=== PATIENT | female | born 1965 | race African-American/Black ===

== ENCOUNTER → 2023-09-15 | Outpatient (CLI) | payer BC, OTHER ==
[2023-09-15 11:39] LABS: BASOPHILS % 1.4 % (0.0-2.0); EOSINOPHILS % 1.5 % (0.0-5.0); HEMATOCRIT. 38.1 % (36.0-48.0); HEMOGLOBIN. 13.2 g/dL (12.0-16.0); LYMPHOCYTES % 34.2 % (20.0-50.0); MEAN CORPUSCULAR HEMOGLOBIN 32.5 pg (28.0-32.0); MEAN CORPUSCULAR HGB CONC 34.5 g/dL (31.0-37.0); MEAN CORPUSCULAR VOLUME 94.1 fL (81.0-99.0); MEAN PLATELET VOLUME 8.1 fl (7.4-10.4); MONOCYTES % 7.9 % (2.0-8.0); PLATELET 295 x1000/uL (130-400); RED BLOOD CELL COUNT 4.05 mill/uL (4.2-5.4); RED CELL DISTRIBUTION WIDTH 14.9 % (11.6-14.6); WHITE BLOOD COUNT 8.6 x1000/uL (4.5-11.0)
[2023-09-15 12:33] LABS: CHLORIDE 103 mEq/L (98-107); INDEX HEMOLYSI 1 (1-3); INDEX ICTERIC 1 (1-4); INDEX LIPEMIC 1 (1-3); POTASSIUM 4.2 mEq/L (3.5-5.1); SODIUM 137 mEq/L (136-145)
[2023-09-15 12:51] LABS: ALANINE AMINOTRANSFERASE 57 IU/L (13-61); ALBUMIN 4.6 g/dL (3.4-5.0); ASPARTATE AMINOTRANSFERASE 46 IU/L (15-37); BILIRUBIN DIRECT 0.3 mg/dL (0.0-0.2); BILIRUBIN TOTAL 1.2 mg/dL (0.1-1.0); CALCIUM 10.3 mg/dL (8.5-10.1); CARBON DIOXIDE 30 mEq/L (21-32); CHOLESTEROL 214 mg/dL (<200); CREATININE 0.9 mg/dL (0.6-1.3); GLUCOSE 102 mg/dL (70-105); LDL CHOLESTEROL 35 mg/dL (5-100); PROTEIN TOTAL 8.6 g/dL (6.0-8.3); T4 FREE 0.86 ng/dL (0.76-1.46); TRIGLYCERIDE 58 mg/dL (0-150); UREA NITROGEN BLOOD 21 mg/dL (7-21)
[2023-09-15 18:12] LABS: HDL CHOLESTEROL 181 mg/dL (40-59)
== END | disposition home or self-care (01) ==
LOC: LAB 08:27
PROVIDERS: ATTEND Internal Medicine
DX: Z00.01 Encounter for general adult medical examination with abnormal findings (principal); I10 Essential (primary) hypertension; E78.5 Hyperlipidemia, unspecified; E06.3 Autoimmune thyroiditis
CPT/HCPCS: 36415; 80053; 80061; 80076; 84439; 84443; 85025; 86376

== ENCOUNTER → 2023-09-20 | Outpatient (CLI) | payer BC | END | disposition home or self-care (01) | LOC: US 08:20 | PROVIDERS: ATTEND Internal Medicine | DX: E04.2 Nontoxic multinodular goiter (principal) | CPT/HCPCS: 76536 ==

== ENCOUNTER → 2023-09-29 | Day surgery (SDC) | payer BC ==
[~2023-09-29] MED LIST: LIDOCAINE HCL 1% 10 MG/ML 10ML VIAL ONE; SODIUM BICARBONATE 4% (2.4MEQ) 5ML VIAL IV ONE
== END | disposition home or self-care (01) ==
LOC: RAD 09:27
PROVIDERS: ATTEND Internal Medicine
DX: E04.1 Nontoxic single thyroid nodule (principal)
CPT/HCPCS: 10005; J3490 ×2

== ENCOUNTER 2024-02-27 08:40 | Emergency (ER) | payer BC ==
[~2024-02-27] VITALS: Ht 170.2 cm; Wt 62.0 kg
[2024-02-27 08:45] VITALS: O2SAT 99
[2024-02-27] MEDS: PREDNISONE 5MG TABLET PO ONE (10:20)
[2024-02-27] MEDS ORDERED: PRED5TAB MT ×2 (10:39→20:37)
[2024-02-27 11:00] VITALS: BP 114/69; PULSE 87; RESP 17; TEMP 98.2
[2024-02-27] MEDS ORDERED: ACETAMINOPHEN 325MG TABLET PO NR (11:15)
[2024-02-27] MEDS ORDERED: HYDR-4001 MT ×2 (20:39→21:42)
[2024-02-27] MEDS ORDERED: P20 MT (21:40)
== END 2024-02-27 11:01 | disposition home or self-care (01) ==
LOC: ER 08:40
DX: K50.90 Crohn's disease, unspecified, without complications (principal); Z76.0 Encounter for issue of repeat prescription; Z90.710 Acquired absence of both cervix and uterus
CPT/HCPCS: 99283; J7512

== ENCOUNTER 2024-02-27 19:41 | Emergency (ER) | payer BC ==
[~2024-02-27] VITALS: Ht 170.2 cm; Wt 63.0 kg
[~2024-02-27 19:41] MED LIST changes: -LIDOCAINE HCL 1% 10 MG/ML 10ML VIAL ONE; +PRED5TAB MT; -SODIUM BICARBONATE 4% (2.4MEQ) 5ML VIAL IV ONE
[2024-02-27 19:53] VITALS: O2SAT 99
[2024-02-27] MEDS ORDERED: PRED5TAB MT (20:37)
[2024-02-27] MEDS ORDERED: HYDR-4001 MT ×2 (20:39→21:42)
[2024-02-27 20:48] LABS: BASOPHILS % 1.5 % (0.0-2.0); EOSINOPHILS % 0.8 % (0.0-5.0); HEMATOCRIT. 37.6 % (36.0-48.0); HEMOGLOBIN. 12.7 g/dL (12.0-16.0); LYMPHOCYTES % 29.9 % (20.0-50.0); MEAN CORPUSCULAR HEMOGLOBIN 32.6 pg (28.0-32.0); MEAN CORPUSCULAR HGB CONC 33.8 g/dL (31.0-37.0); MEAN CORPUSCULAR VOLUME 96.2 fL (81.0-99.0); MEAN PLATELET VOLUME 8.3 fl (7.4-10.4); MONOCYTES % 4.7 % (2.0-8.0); NEUTROPHILS % 63.1 % (40.0-76.0); PLATELET 315 x1000/uL (130-400); RED BLOOD CELL COUNT 3.91 mill/uL (4.2-5.4); RED CELL DISTRIBUTION WIDTH 14.8 % (11.6-14.6); WHITE BLOOD COUNT 9.5 x1000/uL (4.5-11.0)
[2024-02-27 21:07] LABS: ALANINE AMINOTRANSFERASE 61 IU/L (10-49); ALBUMIN 5.7 g/dL (3.2-4.8); ASPARTATE AMINOTRANSFERASE 57 IU/L (<34); BILIRUBIN TOTAL 0.8 mg/dL (0.1-1.0); CALCIUM 11.1 mg/dL (8.7-10.4); CARBON DIOXIDE 21 mEq/L (21-32); CHLORIDE 103 mEq/L (98-107); CREATININE 1.2 mg/dL (0.6-1.0); GLUCOSE 89 mg/dL (70-105); POTASSIUM 4.2 mEq/L (3.5-5.1); SODIUM 133 mEq/L (136-145); UREA NITROGEN BLOOD 20 mg/dL (9-23)
[2024-02-27] MEDS: HYDROCODONE/ACETAMINOPHEN 5/325MG TABLET PO ONE (21:13)
[2024-02-27 21:25] LABS: CLARITY URINE CLEAR (CLEAR); COLOR URINE YELLOW (YELLOW); GLUCOSE URINE NEGATIVE (NEGATIVE); KETONES URINE NEGATIVE (NEGATIVE); LEUKOCYTE ESTERASE URINE NEGATIVE (NEGATIVE); NITRITE URINE NEGATIVE (NEGATIVE); OCCULT BLOOD URINE NEGATIVE (NEGATIVE); PROTEIN URINE NEGATIVE (NEGATIVE); SPECIFIC GRAVITY URINE 1.009 (1.005-1.030); UROBILINOGEN URINE 0.2 E.U./dL (0.2-1.0)
[2024-02-27] MEDS ORDERED: P20 MT (21:40)
[2024-02-27 22:00] VITALS: BP 123/74; PULSE 89; RESP 16; TEMP 97.6
== END 2024-02-27 22:00 | disposition home or self-care (01) ==
LOC: ER 19:41
DX: K50.90 Crohn's disease, unspecified, without complications (principal); Z90.710 Acquired absence of both cervix and uterus
CPT/HCPCS: 36415; 80053; 81003; 85025; 99283

== ENCOUNTER → 2024-07-12 | Outpatient (CLI) | payer BC ==
[~2024-07-12] MED LIST changes: +HYDR-4001 MT; +P20 MT
[2024-07-12 14:53] LABS: CARBON DIOXIDE 28 mEq/L (21-32); CHLORIDE 105 mEq/L (98-107); POTASSIUM 4.2 mEq/L (3.5-5.1); SODIUM 138 mEq/L (136-145)
[2024-07-12 14:54] LABS: CALCIUM 11.6 mg/dL (8.7-10.4)
[2024-07-12 14:58] LABS: GLUCOSE 81 mg/dL (70-105)
[2024-07-12 14:59] LABS: LDL CHOLESTEROL 79 mg/dL (5-100); TRIGLYCERIDE 58 mg/dL (0-150); UREA NITROGEN BLOOD 15 mg/dL (9-23)
[2024-07-12 15:00] LABS: ALANINE AMINOTRANSFERASE 40 IU/L (10-49); ASPARTATE AMINOTRANSFERASE 38 IU/L (<34)
[2024-07-12 15:01] LABS: ALBUMIN 5.3 g/dL (3.2-4.8); CHOLESTEROL 226 mg/dL (<200); HDL CHOLESTEROL 118 mg/dL (>65); PROTEIN TOTAL 7.7 g/dL (6.0-8.3)
[2024-07-12 15:03] LABS: T4 FREE 0.96 ng/dL (0.89-1.76); THYROID STIMULATING HORMONE 0.91 uIU/mL (0.55-4.78)
== END | disposition home or self-care (01) ==
LOC: LAB 14:10
PROVIDERS: ATTEND Internal Medicine
DX: E11.9 Type 2 diabetes mellitus without complications (principal); I10 Essential (primary) hypertension; E03.5 Myxedema coma; E78.5 Hyperlipidemia, unspecified
CPT/HCPCS: 36415; 80053; 80061; 83036; 84439; 84443

== ENCOUNTER 2024-12-16 14:46 | Emergency (ER) | payer BC ==
[2024-12-16 15:13] VITALS: BP 141/79; PULSE 70; RESP 16; O2SAT 100
[2024-12-16 15:31] VITALS: TEMP 36.7
== END 2024-12-16 15:39 | disposition home or self-care (01) ==
LOC: ER 14:51
DX: Z00.00 Encounter for general adult medical examination without abnormal findings (principal); Z20.822 Contact with and (suspected) exposure to COVID-19; Z90.710 Acquired absence of both cervix and uterus
CPT/HCPCS: 87426; 99283

== ENCOUNTER → 2024-12-20 | Outpatient (CLI) | payer BC ==
[2024-12-20 09:00] LABS: BASOPHILS % 1.6 % (0.0-2.0); EOSINOPHILS % 2.4 % (0.0-5.0); HEMATOCRIT. 38.3 % (36.0-48.0); HEMOGLOBIN. 12.8 g/dL (12.0-16.0); LYMPHOCYTES % 32.7 % (20.0-50.0); MEAN CORPUSCULAR HEMOGLOBIN 31.8 pg (28.0-32.0); MEAN CORPUSCULAR HGB CONC 33.3 g/dL (31.0-37.0); MEAN CORPUSCULAR VOLUME 95.4 fL (81.0-99.0); MEAN PLATELET VOLUME 8.4 fl (7.4-10.4); MONOCYTES % 7.4 % (2.0-8.0); NEUTROPHILS % 55.9 % (40.0-76.0); PLATELET 276 x1000/uL (130-400); RED BLOOD CELL COUNT 4.02 mill/uL (4.2-5.4); RED CELL DISTRIBUTION WIDTH 14.2 % (11.6-14.6); WHITE BLOOD COUNT 7.2 x1000/uL (4.5-11.0)
[2024-12-20 09:02] LABS: CLARITY URINE CLEAR (CLEAR); COLOR URINE YELLOW (YELLOW); GLUCOSE URINE NEGATIVE (NEGATIVE); KETONES URINE NEGATIVE (NEGATIVE); LEUKOCYTE ESTERASE URINE NEGATIVE (NEGATIVE); NITRITE URINE NEGATIVE (NEGATIVE); OCCULT BLOOD URINE NEGATIVE (NEGATIVE); PH URINE 7.5 (4.5-8.0); PROTEIN URINE NEGATIVE (NEGATIVE); SPECIFIC GRAVITY URINE 1.011 (1.005-1.030); UROBILINOGEN URINE 0.2 E.U./dL (0.2-1.0)
[2024-12-20 09:10] LABS: CHLORIDE 105 mEq/L (98-107); POTASSIUM 3.7 mEq/L (3.5-5.1); SODIUM 139 mEq/L (136-145)
[2024-12-20 09:11] LABS: CALCIUM 10.9 mg/dL (8.7-10.4); CARBON DIOXIDE 25 mEq/L (21-32)
[2024-12-20 09:16] LABS: CREATININE 0.9 mg/dL (0.6-1.0); GLUCOSE 93 mg/dL (70-105); TRIGLYCERIDE 56 mg/dL (0-150); UREA NITROGEN BLOOD 15 mg/dL (9-23)
[2024-12-20 09:17] LABS: LDL CHOLESTEROL 29 mg/dL (5-100)
[2024-12-20 09:18] LABS: ALANINE AMINOTRANSFERASE 61 IU/L (10-49); ALBUMIN 4.9 g/dL (3.2-4.8); ASPARTATE AMINOTRANSFERASE 55 IU/L (<34); BILIRUBIN DIRECT 0.3 mg/dL (<=3.0); CHOLESTEROL 162 mg/dL (<200); CREATINE KINASE 465 IU/L (34-145); HDL CHOLESTEROL 109 mg/dL (>65); PROTEIN TOTAL 7.7 g/dL (6.0-8.3)
[2024-12-20 09:20] LABS: THYROID STIMULATING HORMONE 0.72 uIU/mL (0.55-4.78)
[2024-12-20 09:44] LABS: HIV 1/2 AB P24AG Negative (Negative)
[2024-12-20 14:54] LABS: HEPATITIS C AB NON REACTIVE (Neg) (Negative)
[2024-12-21 09:09] LABS: HBSAG SCREEN Negative (Negative); T4 THYROXINE 6.2 ug/dL (4.5-12.0); VITAMIN D 25-OH 27.8 ng/mL (30.0-100.0)
[2024-12-23 17:11] LABS: ALDOLASE 5.6 U/L (3.3-10.3)
== END | disposition home or self-care (01) ==
LOC: LAB 08:12
PROVIDERS: ATTEND Internal Medicine
DX: Z11.3 Encounter for screening for infections with a predominantly sexual mode of transmission (principal); I10 Essential (primary) hypertension; R73.9 Hyperglycemia, unspecified; E55.9 Vitamin D deficiency, unspecified; N39.0 Urinary tract infection, site not specified; E78.5 Hyperlipidemia, unspecified; E03.9 Hypothyroidism, unspecified; D64.9 Anemia, unspecified; R73.09 Other abnormal glucose
CPT/HCPCS: 36415; 80053; 80061; 80076; 81003; 82085; 82306; 82550; 83036; 84436; 84443; 85025; 86592; 86705; 87340; 87591

== ENCOUNTER → 2024-12-26 | Outpatient (CLI) | payer BC | END | disposition home or self-care (01) | LOC: CT 14:28 | PROVIDERS: ATTEND Internal Medicine | DX: J43.9 Emphysema, unspecified (principal); R05.9 Cough, unspecified; F17.200 Nicotine dependence, unspecified, uncomplicated | CPT/HCPCS: 71250 ==

== ENCOUNTER 2025-03-19 11:13 | Emergency (ER) | payer BC ==
[2025-03-19 13:03] VITALS: BP 140/62; PULSE 82; RESP 16; O2SAT 100
== END 2025-03-19 13:07 | disposition home or self-care (01) ==
LOC: ER 11:13
DX: S00.83XA Contusion of other part of head, initial encounter (principal); Z90.710 Acquired absence of both cervix and uterus; W19.XXXA Unspecified fall, initial encounter; Y93.02 Activity, running; Y92.89 Other specified places as the place of occurrence of the external cause; Y99.8 Other external cause status
CPT/HCPCS: 70486; 99284

== ENCOUNTER 2025-04-24 09:46 | Emergency (ER) | payer BC ==
[~2025-04-24] VITALS: Ht 170.2 cm; Wt 64.0 kg
[2025-04-24 09:48] VITALS: O2SAT 100
[2025-04-24] MEDS: ACETIC ACID 0.25% IR ONE (10:30)
[2025-04-24] MEDS ORDERED: DEBROX EACH EAR (11:14)
[2025-04-24 11:30] VITALS: BP 145/68; PULSE 67; RESP 15; TEMP 36.9; O2SAT 100
== END 2025-04-24 11:33 | disposition home or self-care (01) ==
LOC: ER 09:46
DX: H61.23 Impacted cerumen, bilateral (principal); Z90.710 Acquired absence of both cervix and uterus; Z98.890 Other specified postprocedural states; Z79.899 Other long term (current) drug therapy
CPT/HCPCS: 69209; 99282; Z7610 ×2

== ENCOUNTER → 2025-07-11 | Outpatient (CLI) | payer BC ==
[~2025-07-11] MED LIST changes: +CARB15DR20 EACH EAR
[2025-07-11 14:23] LABS: CREATININE 1.0 mg/dL (0.6-1.0)
[2025-07-11 14:24] LABS: UREA NITROGEN BLOOD 14 mg/dL (9-23)
[2025-07-11 14:25] LABS: ASPARTATE AMINOTRANSFERASE 28 IU/L (<34); C REACTIVE PROTEIN HIGH SENS 3.86 mg/l (<1.00)
[2025-07-11 14:26] LABS: BILIRUBIN DIRECT 0.2 mg/dL (<=3.0); BILIRUBIN TOTAL 1.0 mg/dL (0.1-1.0); PROTEIN TOTAL 7.2 g/dL (6.0-8.3)
[2025-07-11 14:50] LABS: HEPATITIS A AB IGM NEGATIVE (Negative)
[2025-07-11 14:51] LABS: HEPATITIS B CORE AB IGM NEGATIVE (Negative); HEPATITIS C AB NON REACTIVE (Neg) (Negative)
== END | disposition home or self-care (01) ==
LOC: LAB 12:34
PROVIDERS: ATTEND Internal Medicine
DX: I10 Essential (primary) hypertension (principal); J44.9 Chronic obstructive pulmonary disease, unspecified; E83.42 Hypomagnesemia; E04.1 Nontoxic single thyroid nodule; E78.5 Hyperlipidemia, unspecified; K50.90 Crohn's disease, unspecified, without complications; R74.01 Elevation of levels of liver transaminase levels
CPT/HCPCS: 36415; 80048; 80074; 80076; 82085; 82550; 83970; 85651; 86141; 86705; 86709; 87340

== ENCOUNTER → 2025-08-19 | Outpatient (CLI) | payer BC ==
[2025-08-19 14:20] LABS: BASOPHILS % 2.8 % (0.0-2.0); EOSINOPHILS % 1.9 % (0.0-5.0); HEMATOCRIT. 38.5 % (36.0-48.0); HEMOGLOBIN. 12.9 g/dL (12.0-16.0); LYMPHOCYTES % 47.3 % (20.0-50.0); MEAN PLATELET VOLUME 8.3 fl (7.4-10.4); MONOCYTES % 5.7 % (2.0-8.0); NEUTROPHILS % 42.3 % (40.0-76.0); PLATELET 334 x1000/uL (130-400); RED BLOOD CELL COUNT 4.01 mill/uL (4.2-5.4); RED CELL DISTRIBUTION WIDTH 13.7 % (11.6-14.6)
[2025-08-19 14:33] LABS: CREATININE 1.0 mg/dL (0.6-1.0)
[2025-08-19 14:34] LABS: TRIGLYCERIDE 81 mg/dL (0-150); UREA NITROGEN BLOOD 16 mg/dL (9-23)
[2025-08-19 14:35] LABS: ASPARTATE AMINOTRANSFERASE 30 IU/L (<34); C REACTIVE PROTEIN HIGH SENS 0.70 mg/l (<1.00); LDL CHOLESTEROL 96 mg/dL (5-100)
[2025-08-19 14:36] LABS: BILIRUBIN DIRECT 0.1 mg/dL (<=3.0); BILIRUBIN TOTAL 0.7 mg/dL (0.1-1.0); PROTEIN TOTAL 7.8 g/dL (6.0-8.3)
[2025-08-19 14:40] LABS: T4 FREE 1.09 ng/dL (0.89-1.76)
[2025-08-19 15:11] LABS: HEPATITIS A AB IGM NEGATIVE (Negative)
[2025-08-19 15:12] LABS: HEPATITIS B CORE AB IGM NEGATIVE (Negative); HEPATITIS C AB NON REACTIVE (Neg) (Negative)
[2025-08-19 16:08] LABS: CLARITY URINE CLEAR (CLEAR); COLOR URINE YELLOW (YELLOW); GLUCOSE URINE NEGATIVE (NEGATIVE); KETONES URINE NEGATIVE (NEGATIVE); LEUKOCYTE ESTERASE URINE NEGATIVE (NEGATIVE); NITRITE URINE NEGATIVE (NEGATIVE); OCCULT BLOOD URINE NEGATIVE (NEGATIVE); PH URINE 6.5 (4.5-8.0); PROTEIN URINE NEGATIVE (NEGATIVE); SPECIFIC GRAVITY URINE 1.014 (1.005-1.030); UROBILINOGEN URINE 0.2 E.U./dL (0.2-1.0)
[2025-08-19 23:53] LABS: ERYTHROCYTE SEDIMENTATION RATE 11 mm/hr (0-30)
[2025-08-21 09:07] LABS: *T3 UPTAKE 25 % (24-39)
[2025-08-23 05:11] LABS: ALDOLASE 5.7 U/L (3.3-10.3)
== END | disposition home or self-care (01) ==
LOC: LAB 13:32
PROVIDERS: ATTEND Internal Medicine
DX: I10 Essential (primary) hypertension (principal); E78.5 Hyperlipidemia, unspecified; E03.9 Hypothyroidism, unspecified; R74.01 Elevation of levels of liver transaminase levels; E55.9 Vitamin D deficiency, unspecified; N39.0 Urinary tract infection, site not specified; D64.9 Anemia, unspecified; R73.09 Other abnormal glucose; Z79.899 Other long term (current) drug therapy
CPT/HCPCS: 36415; 80053; 80061; 80074; 80076; 81001; 81003; 82085; 82550; 83036; 83970; 84439; 84443; 84479; 85025; 85651; 86141; 86705; 86709; 87340